=== PATIENT | male | born 1990 | race Caucasian/White ===

== ENCOUNTER → 2025-01-28 | Outpatient (CLI) | payer OTHER ==
--- NOTE | 2025-01-30 07:24 | MR ---
EXAMINATION TYPE: MR knee RT wo con DATE OF EXAM: 01/28/2025 COMPARISON: Outside right knee x-ray January 18, 2025 HISTORY: Right knee outer pain and swelling for 2 to 3 months, S/P injury 2 yrs ago, with recent slip on ice but didn't fall TECHNIQUE: Multiplanar, multisequence images of the knee is performed without IV contrast. FINDINGS: MEDIAL MENISCUS: Anterior and posterior horns are intact without tear. LATERAL MENISCUS: Anterior and posterior horns are intact without tear. CRUCIATE LIGAMENTS: The anterior and posterior cruciate ligaments are intact and unremarkable. COLLATERAL LIGAMENTS: The medial collateral ligament and lateral collateral ligament complex are inta ct. Some fluid signal surrounds the medial collateral ligament. EXTENSOR MECHANISM: Visualized quadriceps and patellar tendons are intact. There is heterogeneous ill -defined fluid in the Hoffa's fat pad with areas of susceptibility artifact. EFFUSION: There is small to moderate size suprapatellar joint fluid collection. This is irregular in shape with some susceptibility artifact. POPLITEAL CYST: Moderate-sized popliteal/jennings cyst has thickened wall and susceptibility artifact al chrystal the periphery. TRICOMPARTMENT SPACES: Mild to moderate tricompartment joint space loss is seen. No significant spurr ing. CARTILAGE: Tricompartmental articular cartilage is preserved. BONE MARROW SIGNAL: No focal abnormal marrow signal is appreciated. OTHER: No additional significant abnormality is appreciated. IMPRESSION: 1. There is evidence of hemarthrosis as detailed above. There is moderate size popliteal cyst with bl ood product. There is fluid and blood product into Hoffa's fat pad raising concern for impingement sy ndrome. Correlate clinically. Correlate for possible underlying coagulopathy. 2. Mild MCL sprain injury. No meniscal or ligamentous tear. [facility], , 01/30/2025 7:22 AM
== END | disposition home or self-care (01) ==
LOC: RADMRIMAIN 08:43
PROVIDERS: ATTEND Orthopaedic Surgery
DX: M71.21 Synovial cyst of popliteal space [Baker], right knee (principal); M25.061 Hemarthrosis, right knee